=== PATIENT | male | born 1970 | race Caucasian/White ===

== ENCOUNTER → 2021-05-14 | Day surgery (SDC) | payer OTHER ==
[~2021-05-14] VITALS: Ht 177.8 cm; Wt 88.5 kg
[~2021-05-14] MED LIST: ACE AEROSOL CL1 EACH INH
[2021-05-14 07:34] LABS: HCT 46.7 % (42.0-52.0); HGB 16.3 g/dl (13.2-18.0); MCHC 34.9 g/dL (32.0-36.0); MPV 10.6 fL (6.0-9.5); RBC 5.43 M/uL (4.70-6.00); RDW 13.7 % (11.5-14.0); WBC 11.7 K/uL (4.0-10.5)
[2021-05-14 08:44] LABS: ALBUMIN 4.2 g/dL (3.4-5.0); BILIRUBIN - TOTAL 0.5 mg/dL (0.2-1.0); BUN/CREAT RATIO (CALC) 18.4 RATIO; CREATININE 0.87 mg/dL (0.67-1.17); GLOBULIN (CALCULATION) 3.5 g/dL; POTASSIUM 4.1 mmol/L (3.5-5.1); TOTAL PROTEIN 7.7 g/dL (6.4-8.2)
== END | disposition home or self-care (01) ==
LOC: FAS 06:35
PROVIDERS: Surgery
DX: Z12.11 Encounter for screening for malignant neoplasm of colon (principal); D12.6 Benign neoplasm of colon, unspecified; F17.210 Nicotine dependence, cigarettes, uncomplicated
CPT/HCPCS: 36415; 80053; J1610; J2704; J7120

== ENCOUNTER → 2021-08-14 | Day surgery (SDC) | payer OTHER ==
[~2021-08-14] VITALS: Ht 177.8 cm; Wt 90.7 kg
[~2021-08-14] MED LIST changes: +PROAIR HFA8.5 GM INH
[2021-08-14 06:44] LABS: HGB 15.6 g/dl (13.2-18.0); MCH 29.7 pg (25.0-31.0); MCHC 34.7 g/dL (32.0-36.0); MCV 85.6 fL (78.0-100.0); MPV 10.6 fL (6.0-9.5); RBC 5.26 M/uL (4.70-6.00); RDW 13.5 % (11.5-14.0); WBC 9.3 K/uL (4.0-10.5)
[2021-08-14 07:02] LABS: ALBUMIN 3.7 g/dL (3.4-5.0); BILIRUBIN - TOTAL 0.7 mg/dL (0.2-1.0); BUN/CREAT RATIO (CALC) 22.3 RATIO; CREATININE 1.03 mg/dL (0.67-1.17); GLOBULIN (CALCULATION) 3.1 g/dL; POTASSIUM 4.2 mmol/L (3.5-5.1); TOTAL PROTEIN 6.8 g/dL (6.4-8.2)
== END | disposition home or self-care (01) ==
LOC: FAS 05:50
PROVIDERS: Orthopaedic Surgery
DX: S83.231A Complex tear of medial meniscus, current injury, right knee, initial encounter (principal); M17.11 Unilateral primary osteoarthritis, right knee; M25.861 Other specified joint disorders, right knee; X58.XXXA Exposure to other specified factors, initial encounter; F17.200 Nicotine dependence, unspecified, uncomplicated
CPT/HCPCS: 36415; 71045; 80053; 93005; J1100; J1170; J2250; J2405; J2704; J3010; J7120

== ENCOUNTER → 2022-01-07 | Day surgery (SDC) | payer OTHER ==
[~2022-01-07] VITALS: Ht 177.8 cm; Wt 90.7 kg
[~2022-01-07] MED LIST changes: +DRISDOL50000 UNIT PO; +LIPITOR20 MG PO; +PRINIVIL10 MG PO
[2022-01-07 10:15] LABS: BUN/CREAT RATIO (CALC) 26.1 RATIO; CREATININE 1.19 mg/dL (0.67-1.17); POTASSIUM 4.4 mmol/L (3.5-5.1)
== END | disposition home or self-care (01) ==
LOC: FAS 08:19
PROVIDERS: Anesthesiology
DX: M75.111 Incomplete rotator cuff tear or rupture of right shoulder, not specified as traumatic (principal); S46.211A Strain of muscle, fascia and tendon of other parts of biceps, right arm, initial encounter; M75.51 Bursitis of right shoulder; M75.91 Shoulder lesion, unspecified, right shoulder; M75.41 Impingement syndrome of right shoulder; X58.XXXA Exposure to other specified factors, initial encounter
CPT/HCPCS: 36415; 80048; J0171; J0690; J1100; J2250; J2795; J7120